=== PATIENT | female | born 1955 | race Caucasian/White ===

== ENCOUNTER 2020-01-26 07:52 | Outpatient (CLI) | payer OTHER, SELFPAY ==
--- NOTE | ~2020-01-26 | MM_ITS ---
EXAMINATION: MM screening carlos alberto BI w jeffrey HISTORY: Screening mammogram TECHNIQUE: Craniocaudal and mediolateral oblique 3-D tomosynthesis images were obtained and synthetic 2-D images were generated. CAD analysis was submitted and interpreted. COMPARISON: No prior mammogram is available for comparison at this institution. BREAST PARENCHYMAL COMPOSITION: There are scattered areas of fibroglandular density. FINDINGS: There is no evidence of suspicious mass, calcification, or architectural distortion to sugg est malignancy in either breast. IMPRESSION: 1. No mammographic evidence of malignancy. 2. Recommend routine screening mammography in one year. BI-RADS Category 1: Negative Reviewed, dictated and finalized at location A.
== END 2020-01-26 07:53 | disposition home or self-care (01) ==
LOC: ANHIMG 07:54
PROVIDERS: PCP Internal Medicine; Visit Provider Internal Medicine
DX: Z12.31 Encounter for screening mammogram for malignant neoplasm of breast (principal)
CPT/HCPCS: 77063; 77067

== ENCOUNTER 2021-04-25 08:51 | Outpatient (CLI) | payer OTHER, SELFPAY ==
--- NOTE | ~2021-04-25 | DEXA_ITS ---
Bone Density Report Name: Suyapa Barrios Age: 65 Sex: Female Ethnicity: White Date of : 1955 Indication: osteopenia; monitoring treatment; parental hip fracture; height loss; postmenopausal Referring Provider: CLIFFORD FAIR Study: Bone densitometry was performed. Exam Date: April 25, 2021 Accession number: [id number] Bone Density: Region BMD T-score Z-score Classification AP Spine (L1-L4) 0.819 -2.1 -0.4 Osteopenia Femoral Neck (Left) 0.565 -2.6 -1.1 Osteoporosis Total Hip (Left) 0.681 -2.1 -1.0 Osteopenia Total Hip Bilateral Avg 0.718 -1.8 -0.7 Osteopenia Femoral Neck (Right) 0.569 -2.5 -1.1 Osteoporosis Total Hip (Right) 0.755 -1.5 -0.4 Osteopenia World Health Organization criteria for BMD impression classify patients as: Normal (T-score at or above -1.0), Osteopenia (T-score between -1.0 and -2.5), or Osteoporosis (T-score at or below -2.5). 10-year Fracture Risk: FRAX not reported because: Some T-score for Spine Total or Hip Total or Femoral Neck at or below -2.5 Treated for osteoporosis Previous Exams: Region Exam Age BMD T-score BMD Change BMD Change Date g/cm2 vs Baseline vs Previous AP Spine(L1-L4) 04/25/2021 65 0.819 -2.1 0.024(3.0%)* 0.024(3.0%)* 12/28/2018 63 0.796 -2.3 Total Hip(Left) 04/25/2021 65 0.681 -2.1 0.010(1.4%) 0.010(1.4%) 12/28/2018 63 0.671 -2.2 Total Hip(Right) 04/25/2021 65 0.755 -1.5 0.075(11.0%)* 0.075(11.0%)* 12/28/2018 63 0.680 -2.1 *Denotes significance at 95% confidence level, LSC for AP Spine = 0.022 g/cm2, LSC for Total Hip = 0.027 g/cm2 Clinical Information Provided by Patient: Parent has had a hip fracture Is being treated for osteoporosis Has used the following medications: Evista (i.e. raloxifene), Vitamin D, Calcium Patient maximum height was 66 Menopause Age: 55 Drinks caffeinated beverages Onset of menses at age 15 Number of children 2 Impression: The patient has osteoporosis, based on the Left Femoral Neck T-score. The patient has risk factors, including: parental hip fracture. No significant bone loss was observed. Discussion: PATIENT UNDER TREATMENT WITH NO SIGNIFICANT BMD LOSS SINCE LAST EXAM. In an untreated patient, BMD typically declines with age. A lack of decline or gain is usually a sign that treatment is efficacious and fracture risk is reduced. It is important to ask patients whether they are taking their medications and to encourage continued and appropriate
== END 2021-04-25 08:52 | disposition home or self-care (01) ==
PROVIDERS: PCP Internal Medicine; Visit Provider Internal Medicine
DX: E55.9 Vitamin D deficiency, unspecified (principal); M85.88 Other specified disorders of bone density and structure, other site; M81.0 Age-related osteoporosis without current pathological fracture; M85.852 Other specified disorders of bone density and structure, left thigh; M85.851 Other specified disorders of bone density and structure, right thigh
CPT/HCPCS: 77080

== ENCOUNTER 2021-04-25 09:17 | Outpatient (CLI) | payer OTHER, SELFPAY ==
--- NOTE | 2021-04-25 09:36 | ECHO_ITS ---
Patient Info Name: Suyapa Barrios Age: 65 years : 1955 Gender: Female Ht: 65 in Wt: 122 lbs BSA: 1.59 m2 HR: 58 bpm BP: 136 / 79 mmHg Heart Rhythm: Sinus Rhythm Exam Date: 04/25/2021 10:07 AM Exam Location: [facility] Pulmonary Patient Status: Outpatient Admit Date: 04/25/2021 Staff Ordering Physician: Cristóbal Causey MD Paper Control Clerk: Lindsey Garcia RDCS Attending Provider: Cristóbal Causey MD Exam Type: CA echo doppler color flow Study Info Indications R94.31 - Abnormal electrocardiogram ECG EKG Complete two-dimensional, color flow and Doppler transthoracic echocardiogram is performed. Summary 1. Complete two-dimensional, color flow and Doppler transthoracic echocardiogram is performed. 2. Left ventricular chamber dimension is normal. 3. Left ventricular systolic function is normal, estimated at 60-65%. 4. The left ventricular diastolic function is abnormal. 5. E/e' 10 is mildly elevated. 6. There is mild to moderate aortic valve regurgitation. 7. No pulmonary hypertension, estimated pulmonary arterial systolic pressure is 20 mmHg. Left Ventricle E/e' 10 is mildly elevated. Left ventricular chamber dimension is normal. Left ventricular systolic function is normal, estimated at 60-65%. The left ventricular diastolic function is abnormal. Right Ventricle Right ventricular chamber dimension is normal. Right ventricular systolic function is normal. Left Atria Left atrial chamber dimension is normal. Right Atria Right atrial chamber dimension is normal. Aortic Valve The aortic valve is trileaflet. There is no aortic valve stenosis. There is mild to moderate aortic valve regurgitation. Pulmonic Valve There is no pulmonic regurgitation. Mitral Valve There is no mitral valve stenosis. There is no mitral valve regurgitation. Tricuspid Valve There is no tricuspid valve regurgitation. No pulmonary hypertension, estimated pulmonary arterial systolic pressure is 20 mmHg. Pericardium/Pleural There is no pericardial effusion. Inferior Vena Cava Normal inferior vena cava with >50% collapse upon inspiration consistent with normal right atrial pressure, 5 mmHg. Aorta The aortic root size at the sinus of Valsalva is normal. Left Ventricular Outflow Tract Name Value Normal LVOT 2D LVOT Diameter 2.0 cm LVOT Doppler LVOT Peak Gradient 4 mmHg LVOT Mean Gradient 2 mmHg LVOT VTI 27 cm LVOT VTI/AV VTI Ratio 0.9 LVOT Stroke Volume 84 ml LVOT CO 4.1 l/min LVOT CI 2.6 l/min/m2 Pulmonic Valve Name Value Normal RVOT Doppler RVOT Peak Gradient 2 mmHg PV Doppler
== END 2021-04-25 09:18 | disposition home or self-care (01) ==
PROVIDERS: PCP Internal Medicine; Visit Provider Internal Medicine
DX: R94.31 Abnormal electrocardiogram [ECG] [EKG] (principal)
CPT/HCPCS: 77080; 93306

== ENCOUNTER → 2021-05-26 12:33 | Outpatient (CLI) | payer OTHER, SELFPAY ==
--- NOTE | ~2021-05-26 | CT_ITS ---
EXAMINATION: CT abdomen pelvis w con DATE: 05/26/2021 13:02 INDICATION: Left upper quadrant abdominal pain TECHNIQUE: Computed tomography (CT) of the abdomen and pelvis was performed with 100 cc Omnipaque 350 intravenous contrast. Automated exposure control and iterative reconstruction technique were employe d. Exam dose: 263.98 mGy-cm total exam DLP. COMPARISON: None. FINDINGS: Normal heart size. No pericardial or pleural effusion. The liver, gallbladder, spleen, pancreas, and adrenal glands and kidneys appear normal. No bile duct or pancreatic duct dilatation. Normal caliber of the abdominal aorta. No intraperitoneal or retroperitoneal or pelvic mass lesion or adenopathy or ascites. There is prominent thickening of the wall of the mid sigmoid colon and suggestion of sigmoid divertic ulosis. Consider sigmoid diverticulitis versus sigmoid colon malignancy. No bowel obstruction is evident. There are nondilated fluid distended small bowel loops and occasiona l small bowel air-fluid levels. Fluid levels are noted in the right colon. No intraperitoneal free air is evident. Uterine calcifications, likely secondary to fibroids. Prominent bilateral adnexal enhancing veins. No suspicious osteolytic or osteoblastic lesions. IMPRESSION: Prominent thickening of the wall of the mid sigmoid colon and suggestion of diverticulos is. Differential diagnosis includes diverticulitis versus sigmoid colon carcinoma Reviewed, dictated and finalized at Location A. Reviewed, dictated and finalized at location B. IMPRESSION: Prominent thickening of the wall of the mid sigmoid colon and sugg estion of diverticulosis. Differential diagnosis includes diverticulitis versus sigmoid colon carcinoma
[2021-05-26 12:54] LABS: Estimated Glomerular Filt Rate > 60
== END ==
PROVIDERS: PCP Internal Medicine; Visit Provider Internal Medicine
DX: R10.32 Left lower quadrant pain (principal)
CPT/HCPCS: 74177; Q9967

== ENCOUNTER → 2021-06-11 08:23 | Outpatient (CLI) | payer OTHER, SELFPAY ==
--- NOTE | ~2021-06-11 | CT_ITS ---
EXAMINATION: CT abdomen pelvis w con INDICATION: Recent diverticulitis, nausea, abdominal pain TECHNIQUE: Computed tomographic images of the abdomen and pelvis were obtained after the administrati on of 100 cc of Omnipaque 350 intravenous contrast. The dose-length product (DLP) was 240.65 mGy-cm. Automated exposure control and iterative reconstruction technique were employed. COMPARISON: 05/26/2021 FINDINGS: Minimal dependent atelectasis is present in the lung bases. The heart size is normal. The l iver, spleen, pancreas, gallbladder, and adrenal glands are normal. The kidneys are unremarkable. No pathologically enlarged abdominal or pelvic lymph nodes are identified. There is no free intraperiton eal gas or evidence of bowel obstruction. There has been interval resolution in wall thickening and i nflammation in the sigmoid colon in the region of the previously described diverticulitis. No persist ent inflammatory change is seen. The appendix is normal. There is dilation of the parametrial veins i n the left pelvis which can be reflect pelvic venous congestion syndrome in the proper clinical setti ng. Lumbar levoscoliosis is noted. IMPRESSION: 1. Resolved sigmoid diverticulitis. Reviewed, dictated and finalized at location A.
[2021-06-11 09:01] LABS: Estimated Glomerular Filt Rate > 60
== END ==
PROVIDERS: Visit Provider Internal Medicine
DX: K57.92 Diverticulitis of intestine, part unspecified, without perforation or abscess without bleeding (principal)
CPT/HCPCS: 74177; Q9967

== ENCOUNTER → 2021-09-23 04:06 | Outpatient (CLI) | payer OTHER, SELFPAY ==
[2021-09-23 16:54] LABS: SARS-CoV-2 RNA PCR Negative
== END ==
PROVIDERS: PCP Internal Medicine; Visit Provider Internal Medicine
DX: R05.9 Cough, unspecified (principal); Z20.822 Contact with and (suspected) exposure to COVID-19
CPT/HCPCS: C9803; U0003; U0005

== ENCOUNTER → 2021-11-11 01:53 | Outpatient (CLI) | payer OTHER, SELFPAY ==
[2021-11-12 13:33] LABS: SARS-CoV-2 RNA PCR Negative
== END ==
PROVIDERS: PCP Internal Medicine; Visit Provider Internal Medicine
DX: R68.89 Other general symptoms and signs (principal); Z20.822 Contact with and (suspected) exposure to COVID-19
CPT/HCPCS: C9803; U0003; U0005

== ENCOUNTER 2021-12-25 00:33 | Day surgery (SDC) | payer OTHER, SELFPAY ==
[2021-12-11 15:06] VITALS: BMI 19.8
[2021-12-25 08:40] VITALS: BP 122/80; PULSE 86; RESP 16; TEMP 36.9; O2SAT 100; BMI 19.3
[2021-12-25] MEDS: LACTATED RINGERS 1,000 ML 150 ML IV CONT (09:03)
--- NOTE | 2021-12-25 09:20 | WPDGICN ---
Assessment and Plan Assessment and plan (1) Diverticulosis: Code(s): K57.90 - Diverticulosis of intestine, part unspecified, without perforation or abscess without bleeding Status: Acute Assessment and Plan: Patient with diverticular disease she is status post recent diverticulitis episode. Plan is for high-fiber diet. Colonoscopy will be performed today. (2) Colon cancer screening: Code(s): Z12.11 - Encounter for screening for malignant neoplasm of colon Status: Acute Assessment and Plan: Patient presents for screening exam is been 8-10 years since last exam. High-fiber diet is encouraged. Further recommendations will be given after endoscopy. GI Consult Note Consult date/time: 12/25/21 09:20 HPI: Suyapa Barrios is a 66 year old female Presents for screening colonoscopy. Patient has a history of diverticulitis within the last 6 months. She reports that she has recovered with no residual pain. Her bowel habits returned to normal. She denies any bleeding. Past history is significant for a colonoscopy 8 years ago that was unremarkable. Her family history is noncontributory. She presents today for colonoscopy having had diverticulitis. Also for screening purposes. Review of Systems Review of Systems: All systems reviewed & are unremarkable except as noted in HPI and below PMFSH Past Medical History Medical History (Updated 11/20/21 @ 08:40 by Jailene Landin CMA) Adult BMI 19-24 kg/sq m Atypical chest pain Atypical squamoproliferative skin lesion BMI 20.0-20.9, adult BMI 22.0-22.9, adult Chronic cough Colon cancer screening Cough Diverticulosis DJD (degenerative joint disease), multiple sites Elevated glucose Encounter for preventive health examination Encounter for routine adult health examination without abnormal findings Encounter for screening mammogram for malignant neoplasm of breast Exposure to COVID-19 virus Follow up Heart palpitations Hyperlipidemia LLQ abdominal pain On half-way drug therapy Osteopenia Osteoporosis Rash Seasonal allergies Stress incontinence of urine Vitamin D deficiency Family History Family History Father Family history of elevated blood lipids Family history of coronary artery disease, Onset Age: 84 Mother Cerebrovascular accident, Onset Age: 86 Social History Social History Smoking status: Never smoker Alcohol intake: current Drinks per week: 3 Substance use: never Substance use type: does not use Living arrangements: with family Spiritual care concerns: No Meds Home Medications and Allergies Home Medications Medication Instructions Recorded Confirmed Type antiarthritic combination no.2 900 900 mg PO DAILY 12/20/19 12/11/21 History mg tablet calcium carbonate 500 mg calcium 500 mg PO DAILY 12/20/19 12/11/21 History (1,250 mg) tablet cholecalciferol (vitamin D3) 125 125 mcg PO DAILY 12/20/19 12/11/21 History mcg (5,000 unit) tablet raloxifene 60 mg tablet See Rx Instructions .ROUTE 05/23/21 12/11/21 Rx .COMPLEX #90 tablet acetazolamide 250 mg tablet 250 mg PO DAILY #5 tablet 11/20/21 12/11/21 Rx Allergies Allergy/AdvReac Type Severity Reaction Status Date / Time No Known Allergies Allergy Verified 12/25/21 08:50 Vital Signs Vital Signs - 24 hr 12/25/21 08:40 Temperature 98.5 F Pulse Rate 86 Respiratory Rate 16 Blood Pressure 122/80 Pulse Oximetry 100 Exam Narrative: Physical exam reveals patient to be alert. Vital signs stable. HEENT exam is unremarkable. Patient is anicteric. Lungs are clear to auscultation and percussion. Heart is without murmur or extra sounds. Abdominal exam bowel sounds present soft nontender with no organomegaly. Digital external rectal exam is normal.
--- NOTE | 2021-12-25 09:34 | WPDANESEPPF ---
Anes - Initial Pre Proc Eval Procedure: Operation Date: 12/25/21 09:45 Proposed Procedures p Colonoscopy - Williams Clemente MD Date/Time: 12/25/21 09:34 Surgeon: Williams Clemente MD Pre Op Diagnosis: diverticulitis Patient Data Age: 66 Gender: F Height: 1.65 m Weight: 52.6 kg Last Vital Signs Temp 98.5 F 12/25/21 08:40 Pulse 86 12/25/21 08:40 Resp 16 12/25/21 08:40 BP 122/80 12/25/21 08:40 Pulse Ox 100 12/25/21 08:40 Allergies Allergy/AdvReac Type Severity Reaction Status Date / Time No Known Allergies Allergy Verified 12/25/21 08:50 Home Medications Medication Instructions Recorded Confirmed Type antiarthritic combination no.2 900 900 mg PO DAILY 12/20/19 12/11/21 History mg tablet calcium carbonate 500 mg calcium 500 mg PO DAILY 12/20/19 12/11/21 History (1,250 mg) tablet cholecalciferol (vitamin D3) 125 125 mcg PO DAILY 12/20/19 12/11/21 History mcg (5,000 unit) tablet raloxifene 60 mg tablet See Rx Instructions .ROUTE 05/23/21 12/11/21 Rx .COMPLEX #90 tablet acetazolamide 250 mg tablet 250 mg PO DAILY #5 tablet 11/20/21 12/11/21 Rx Patient hx anesthesia problems: none Family hx anesthesia problems: none Results Review: All pre-operative results and documents have been reviewed as part of the pre-operative evaluation. [facility] Past Medical History Medical History (Updated 11/20/21 @ 08:40 by Jailene Landin, [facility]) Adult BMI 19-24 kg/sq m Atypical chest pain Atypical squamoproliferative skin lesion BMI 20.0-20.9, adult BMI 22.0-22.9, adult Chronic cough Colon cancer screening Cough Diverticulosis DJD (degenerative joint disease), multiple sites Elevated glucose Encounter for preventive health examination Encounter for routine adult health examination without abnormal findings Encounter for screening mammogram for malignant neoplasm of breast Exposure to COVID-19 virus Follow up Heart palpitations Hyperlipidemia LLQ abdominal pain On prison drug therapy Osteopenia Osteoporosis Rash Seasonal allergies Stress incontinence of urine Vitamin D deficiency Family History Family History Father Family history of elevated blood lipids Family history of coronary artery disease, Onset Age: 84 Mother Cerebrovascular accident, Onset Age: 86 Social History Social History Smoking status: Never smoker Alcohol intake: current Drinks per week: 3 Substance use: never Substance use type: does not use Living arrangements: with family Spiritual care concerns: No Anes - Eval Final PreProcedure Day of Procedure 12/25/21 09:34 Patient weight: normal Heart: regular rate and rhythm Lungs: clear to auscultation Airway: Mallampati scale class II Neurological: alert and oriented Last oral intake: >/= 8 hours ASA classification: II Emergent: no Anesthetic plan: proceed Anesthesia type and monitoring: general GIVS and standard monitoring Results Review: All pre-operative results and documents have been reviewed as part of the pre-operative evaluation. Informed Consent: The patient's anesthetic plan and its attendant risks and benefits were discussed with the patient/family/POA. Questions were solicited and answers provided to the satisfaction of the patient/family/POA.
[2021-12-25 09:40] VITALS: BP 75/45; PULSE 78; RESP 16; O2SAT 99
[2021-12-25 09:50] VITALS: BP 107/70; PULSE 61; RESP 16; O2SAT 99
[2021-12-25 10:00] VITALS: BP 110/70; PULSE 59; RESP 16; O2SAT 99
== END 2021-12-25 10:15 | disposition home or self-care (01) ==
PROVIDERS: PCP Internal Medicine; Visit Provider Internal Medicine Gastroenterology
PROC: 0DJD8ZZ Inspection of Lower Intestinal Tract, Via Natural or Artificial Opening Endoscopic (ICD-10-PCS; CPT 45378; principal; 2021-12-25 09:45)
DX: Z12.11 Encounter for screening for malignant neoplasm of colon (principal); K64.8 Other hemorrhoids; K57.30 Diverticulosis of large intestine without perforation or abscess without bleeding; Z87.19 Personal history of other diseases of the digestive system; E78.5 Hyperlipidemia, unspecified; M81.0 Age-related osteoporosis without current pathological fracture; E55.9 Vitamin D deficiency, unspecified; N39.3 Stress incontinence (female) (male)
CPT/HCPCS: 45378; J2704; J7120

== ENCOUNTER → 2022-10-05 09:50 | Outpatient (CLI) | payer MEDICARE, OTHER, SELFPAY ==
--- NOTE | ~2022-10-05 | US_ITS ---
EXAMINATION: US pelvic complete DATE: 10/05/2022 11:09 INDICATION: Right lower quadrant pain Comparison:No prior studies for comparison. TECHNIQUE: Multiple transabdominal sonographic images of the pelvis performed. FINDINGS: The uterus measures 5.2 x 3.2 x 3.8 cm. There is a partially calcified uterine fibroid rabia uring 1.3 cm. The endometrial complex measures 2 mm. The right ovary measures 2.3 x 1.8 x 2.1 cm and the left ovary measures 2.5 x 1.4 x 1.9 cm. There ar e small follicles in each ovary. Normal doppler signal in both ovaries. There is no free fluid in the pelvis. There are no abnormal masses seen on either side. No abnormali ty of the right lower quadrant identified. Peristalsing bowel noted. IMPRESSION: 1. Uterine fibroid measuring 1.3 cm. Reviewed, dictated and finalized at location B. LE PROCESSOR
== END ==
PROVIDERS: PCP Internal Medicine; Visit Provider Internal Medicine
DX: R10.30 Lower abdominal pain, unspecified (principal); D25.9 Leiomyoma of uterus, unspecified
CPT/HCPCS: 76856

== ENCOUNTER → 2022-10-12 11:23 | Outpatient (CLI) | payer MEDICARE, OTHER, SELFPAY ==
--- NOTE | ~2022-10-12 | XR_ITS ---
XR hip LT min 2V DATE: 10/12/2022 11:46 INDICATION: Left hip popped while golfing 4 days ago TECHNIQUE: AP, lateral, crosstable lateral views of left hip COMPARISON: None FINDINGS: No fracture or dislocation, avascular necrosis or bone destruction of the left hip. Left hi p joint space appears relatively preserved. The pubic symphysis and sacral iliac joints appear intact. Mild rotatory levoscoliosis of the lumbar spine. IMPRESSION: No significant abnormality of left hip Reviewed, dictated and finalized at location B. 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
== END ==
PROVIDERS: PCP Internal Medicine; Visit Provider Internal Medicine
DX: S79.912A Unspecified injury of left hip, initial encounter (principal); T14.90XA Injury, unspecified, initial encounter
CPT/HCPCS: 73502

== ENCOUNTER 2023-07-07 22:42 | Emergency (ER) | payer MEDICARE, OTHER, SELFPAY ==
--- NOTE | ~2023-07-07 | XR_ITS ---
EXAMINATION: XR chest 2V DATE: 07/07/2023 23:10 INDICATION: Left chest pain. TECHNIQUE: Frontal and lateral views of the chest were obtained. COMPARISON: Chest 2 views 06/25/2018 FINDINGS: There is mild scarring at the lung apices. No pleural effusion or pneumothorax. The heart s ize is normal. IMPRESSION: 1. Stable mild scarring at the lung apices. Reviewed, dictated and finalized at location A.
--- NOTE | 2023-07-07 22:43 | ECG_ITS ---
Measurements Intervals [place] Rate: 60 P: 10 KS: 143 QRS: 15 QRSD: 82 T: 54 QT: 401 QTc: 402 Interpretive Statements SINUS RHYTHM POSSIBLE LEFT ATRIAL ENLARGEMENT [-0.1mV P WAVE IN V1/V2] ST DEVIATION AND MODERATE T-WAVE ABNORMALITY, CONSIDER ANTERIOR ISCHEMIA [-0.1+ mV T WAVE IN V3/V4] NO PREVIOUS ECG AVAILABLE FOR COMPARISON Electronically Signed On 07-08-2023 11:00:04 CDT by Romi Khan M.D.
[2023-07-07 22:46] VITALS: BP 179/86; PULSE 66; RESP 16; TEMP 36.6; O2SAT 98
[2023-07-07 22:52] VITALS: O2SAT 98
[2023-07-07 23:03] LABS: Basophils Absolute Auto 0.1 K/mm3 (0.0-0.1); Basophils Percent Auto 1.1 % (0.2-1.2); Eosinophils Absolute Auto 0.2 K/mm3 (0-0.3); Eosinophils Percent Auto 3.1 % (0-4.4); Hematocrit 41.8 % (37.0-47.0); Hemoglobin 14.2 g/dL (12.0-15.0); Immature Granulocyte Absolute 0.01 K/mm3 (0.00-0.031); Immature Granulocyte Percent A 0.1 % (0-0.5); Lymphocytes Absolute Auto 3.12 K/mm3 (0.9-3.2); Lymphocytes Percent Auto 42.4 % (18.3-44.2); Mean Corpuscular Hemoglobin 31.1 pg (26-34); Mean Corpuscular Volume 91.7 fl (80-100); Mean Platelet Volume 9.7 fl (7.4-10.4); Monocytes Absolute Auto 0.6 K/mm3 (0.1-0.6); Monocytes Percent Auto 8.2 % (2.6-8.5); Neutrophils Absolute Auto 3.3 K/mm3 (1.3-6.7); Neutrophils Percent Auto 45.1 % (45.5-73.1); Platelet Count Result 286 k/mm3 (150-375); Red Blood Count 4.56 M/mm3 (4.2-5.4); Red Cell Distribution Width 11.9 % (11.5-14.5); White Blood Count 7.4 K/mm3 (4.5-10.0)
[2023-07-07 23:13] LABS: INR 0.9; Partial Thromboplastin Time 26.3 SECONDS (22.3-36.8); Prothrombin Time 12.8 Seconds (11.1-14.7)
[2023-07-07 23:16] LABS: Alanine Aminotransferase 27 U/L (6-35); Albumin Level 4.6 g/dL (3.5-5.1); Alkaline Phosphatase 52 U/L (38-126); Anion Gap 6 mmol/L (8-16); Aspartate Amino Transferase 30 U/L (14-36); Bilirubin,Total 0.5 mg/dL (0.2-1.3); Blood Urea Nitrogen 15 mg/dL (7-17); Calcium 9.9 mg/dL (8.4-10.2); Carbon Dioxide 30 mmol/L (22-30); Chloride 95 mmol/L (98-107); Estimated CRCL calculation 53 ml/min; Estimated Glomerular Filt Rate > 60; Glucose 100 mg/dL (65-110); Lipase 168 U/L (23-300); Potassium 3.9 mmol/L (3.4-5.0); Sodium 131 mmol/L (137-145)
[2023-07-07] MEDS: ASPIRIN 81 MG CHEWABLE TABLET 324 MG PO (23:22)
[2023-07-07 23:27] LABS: Troponin I < 0.012 ng/mL (0.000-0.034)
[2023-07-07 23:28] VITALS: PULSE 61; RESP 16; O2SAT 100
[2023-07-07 23:43] VITALS: PULSE 54; RESP 16; O2SAT 100
[2023-07-07 23:45] VITALS: PULSE 59; RESP 17
[2023-07-07] MEDS: IBUPROFEN 400 MG TABLET 800 MG PO (23:45)
[2023-07-07 23:46] VITALS: BP 152/95; PULSE 58; RESP 13; O2SAT 100
--- NOTE | 2023-07-07 23:55 | ED.CHESTPAIN ---
HPI - Chest Pain General Chief Complaint: Chest Pain Stated Complaint: cp Time Seen by Provider: 07/07/23 23:11 History of Present Illness HPI narrative: This is a 68-year-old female, with no significant past medical history, who presents to the emergency department complaining of left-sided chest pain for the past 2 days. She describes the pain as a constant, throbbing sensation, located in the left chest without radiation. It is rated 2-4/10. Pain seems to worsen with lying flat. She denies other aggravating factors. She states she took 2 Excedrin yesterday with improvement. She took 1 Excedrin today with out improvement. She denies nausea, vomiting, shortness of breath lightheadedness, weakness or numbness. She states she has experienced pain like this once in the past, though not for this long. Related Data Home Medications Medication Instructions Recorded Confirmed antiarthritic combination no.2 900 900 mg PO DAILY 12/20/19 10/01/22 mg tablet (glucosamine-chondroitin) calcium carbonate 500 mg calcium 500 mg PO DAILY 12/20/19 10/01/22 (1,250 mg) tablet (Calcium 500) cholecalciferol (vitamin D3) 125 125 mcg PO DAILY 12/20/19 10/01/22 mcg (5,000 unit) tablet (Vitamin D3) Allergies Allergy/AdvReac Type Severity Reaction Status Date / Time No Known Allergies Allergy Verified 12/25/21 08:50 Review of Systems Review of Systems: CONSTITUTIONAL: Denies fever, chills, or sweats. CARDIOVASCULAR: Chest pain denies palpitations, or edema. RESPIRATORY: Denies cough or dyspnea. GASTROINTESTINAL: Denies abdominal pain, nausea, vomiting, or diarrhea. GENITOURINARY: Denies dysuria or hematuria. SKIN: Denies rash or itching. MUSCULOSKELETAL: Denies back pain, joint pain, or myalgia. NEUROLOGIC: Denies headache, numbness, dizziness, or weakness. PSYCHIATRIC: Denies anxiety or depression. [facility] Past Medical History Medical History Adult BMI 19-24 kg/sq m Atypical chest pain Atypical squamoproliferative skin lesion BMI 20.0-20.9, adult BMI 22.0-22.9, adult Chronic cough Colon cancer screening Cough Diverticulosis DJD (degenerative joint disease), multiple sites Elevated glucose Encounter for preventive health examination Encounter for routine adult health examination without abnormal findings Encounter for screening mammogram for malignant neoplasm of breast Exposure to COVID-19 virus Follow up Heart palpitations Hyperlipidemia LLQ abdominal pain Lower abdominal pain On alf drug therapy Osteopenia Osteoporosis Pelvic pain Rash Seasonal allergies Stress incontinence of urine Vitamin D deficiency Family History Family History Father Family history of elevated blood lipids Family history of coronary artery disease, Onset Age: 84 Mother Cerebrovascular accident, Onset Age: 86 Social History Social History Smoking status: Never smoker Second hand tobacco smoke exposure: No Alcohol intake: current Drinks per week: 3 Substance use: never Substance use type: does not use Lack of Transportation: No Lack of Food: Never True Current Housing: I Have Housing Concerned About Future Housing: No Difficulty Paying Gas/Electric Bills: No Difficulty Paying for Meds: No Currently Unemployed: No Education: Bachelor's Degree Difficulty w/ Childcare or Family Care: No Living arrangements: with family Gender identity (if verbalized by the patient): Female Spiritual care concerns: No Exam Narrative: GENERAL: Well-developed, well-nourished, and in no acute distress. HEAD: Normocephalic, atraumatic. EYES: PERRLA and EOMI. CHEST: Clear to auscultation. No respiratory distress. No wheezes rales or rhonchi HEART: Regular rate and rhythm. No murmur heard. Normal peripheral pulses. ABDOMEN: Soft, no
[2023-07-08 00:51] VITALS: BP 144/81; PULSE 67; RESP 14; O2SAT 100
== END 2023-07-08 00:53 | disposition home or self-care (01) ==
PROVIDERS: Emergency Provider Preventive Medicine Aerospace Medicine; PCP Internal Medicine
DX: R09.1 Pleurisy (principal); R07.89 Other chest pain; E78.5 Hyperlipidemia, unspecified; E55.9 Vitamin D deficiency, unspecified; M85.80 Other specified disorders of bone density and structure, unspecified site; M81.0 Age-related osteoporosis without current pathological fracture; N39.3 Stress incontinence (female) (male); R94.31 Abnormal electrocardiogram [ECG] [EKG]
CPT/HCPCS: 36415; 71046; 71275; 80053; 83690; 84484; 85025; 85380; 85610; 85730; 93005; 99284; A9270; Q9967

== ENCOUNTER 2023-07-08 11:22 | Outpatient (CLI) | payer MEDICARE, OTHER, SELFPAY ==
--- NOTE | ~2023-07-08 | CT_ITS ---
EXAMINATION: CTA chest PE protocol DATE: 07/08/2023 12:36 INDICATION: Chest pain, unspecified. TECHNIQUE: Computed tomography angiography (CTA) of the chest was performed with 100 mL Omnipaque-350 intravenous contrast timed to evaluate the pulmonary arteries. Coronal maximum intensity projection 3D-reconstructions were created by the technologist. Automated exposure control and iterative reconst ruction technique were employed. The dose-length product was 176.26 mGy-cm. COMPARISON: CT abdomen and pelvis 06/11/2021 FINDINGS: There is mild scarring at the lung apices. There is minimal atelectasis in the lungs. No pl eural effusion. The heart size is normal. No pericardial effusion. There is mild aortic atheroscleros is. There is no pulmonary embolus. Thoracic dextroscoliosis and thoracolumbar levoscoliosis noted. IMPRESSION: 1. No pulmonary embolus. Reviewed, dictated and finalized at location A. IMPRESSION: 1. No pulmonary embolus.
[2023-07-08 13:06] LABS: D Dimer 0.34 ug/mL (<0.48)
== END 2023-07-08 11:23 | disposition home or self-care (01) ==
LOC: ANHIMG 11:23
PROVIDERS: PCP Internal Medicine; Visit Provider Internal Medicine
DX: R06.09 Other forms of dyspnea (principal); R07.9 Chest pain, unspecified
CPT/HCPCS: 36415; 71275; 85380; Q9967

== ENCOUNTER 2023-07-28 10:05 | Outpatient (CLI) | payer MEDICARE, OTHER, SELFPAY ==
--- NOTE | 2023-07-28 15:05 | WPDPFTINT ---
PFT Procedure Performed PFT Procedure Performed Spirometry with Pre/Post Bronchodilator Plethysmography (Lung Vol) Diffusing Cap (DLCO) Flow Vol Loop PFT Interpretation Lung volumes were measured with the body plethysmography method. Lung volumes are unremarkable. Spirometry showed normal expiratory flow rates and a normal FEV1 to FVC ratio 72%. Following administration of a bronchodilator there was no significant increase in the expiratory flow rates. Lung diffusion capacity is normal at 74% predicted. The flow-volume loop is unremarkable. Impression: Spirometry, lung volumes, and lung diffusion capacity all within the normal range.
== END 2023-07-28 10:06 | disposition home or self-care (01) ==
LOC: ANHPFT 10:05
PROVIDERS: PCP Internal Medicine; Visit Provider Internal Medicine
DX: R05.9 Cough, unspecified (principal)
CPT/HCPCS: 94060; 94726; 94729

== ENCOUNTER 2024-03-21 10:33 | Outpatient (CLI) | payer MEDICARE, OTHER, SELFPAY ==
--- NOTE | ~2024-03-21 | CT_ITS ---
EXAMINATION: CT abdomen pelvis w con DATE: 03/21/2024 11:14 INDICATION: Abdominal pain TECHNIQUE: Computed tomography (CT) of the abdomen and pelvis was performed with 100 mL Omnipaque-350 intravenous contrast. Automated exposure control and iterative reconstruction technique were employe d. The dose-length product was 229.36 mGy-cm. COMPARISON: 06/11/2021 FINDINGS: Lung bases are clear. Heart size is normal. No pericardial or pleural effusion. Liver, gallbladder, s pleen, pancreas, bilateral adrenal glands and kidneys are normal. Bowels including the appendix are n ormal. Unchanged prominent left gonadal vein and left parametrial vessels which can be seen with pulm onary vascular congestion syndrome. Uterus and bilateral adnexa are otherwise unremarkable. Bladder i s normal. No free intraperitoneal gas or fluid. No pathologically enlarged abdominal or pelvic lympha denopathy. 25 degrees thoracolumbar levoscoliosis with moderate spondylosis. IMPRESSION: 1. Unchanged prominent left gonadal vein and parametrial vessels which can be seen with pelvic vascul ature congestion syndrome. No acute intra-abdominal/pelvic process. Reviewed, dictated and finalized at location A. IMPRESSION: 1. Unchanged prominent left gonadal vein and parametrial vessels which can be s een with pelvic vasculature congestion syndrome. No acute intra-abdominal/pelvi c process.
[2024-03-21 11:07] LABS: Estimated Glomerular Filt Rate > 60
[2024-03-21 11:33] LABS: Basophils Absolute Auto 0.1 K/mm3 (0.0-0.1); Basophils Percent Auto 1.3 % (0.2-1.2); Eosinophils Absolute Auto 0.1 K/mm3 (0-0.3); Hematocrit 40.8 % (37.0-47.0); Hemoglobin 13.5 g/dL (12.0-15.0); Immature Granulocyte Absolute 0.02 K/mm3 (0.00-0.031); Immature Granulocyte Percent A 0.4 % (0-0.5); Lymphocytes Absolute Auto 1.57 K/mm3 (0.9-3.2); Lymphocytes Percent Auto 28.9 % (18.3-44.2); Mean Corpuscular HGB Conc 33.1 g/dl (32-36); Mean Corpuscular Hemoglobin 30.7 pg (26-34); Mean Corpuscular Volume 92.7 fl (80-100); Mean Platelet Volume 9.7 fl (7.4-10.4); Monocytes Absolute Auto 0.4 K/mm3 (0.1-0.6); Monocytes Percent Auto 7.9 % (2.6-8.5); Neutrophils Absolute Auto 3.2 K/mm3 (1.3-6.7); Neutrophils Percent Auto 59.5 % (45.5-73.1); Platelet Count Result 269 k/mm3 (150-375); Red Cell Distribution Width 12.6 % (11.5-14.5); White Blood Count 5.4 K/mm3 (4.5-10.0)
== END 2024-03-21 10:34 | disposition home or self-care (01) ==
PROVIDERS: PCP Internal Medicine; Visit Provider Internal Medicine
DX: K57.92 Diverticulitis of intestine, part unspecified, without perforation or abscess without bleeding (principal)
CPT/HCPCS: 36415; 74177; 85025; Q9967

== ENCOUNTER 2024-08-14 13:29 | Outpatient (CLI) | payer MEDICARE, OTHER, SELFPAY ==
--- NOTE | ~2024-08-14 | XR_ITS ---
[id number] Ordering provider: Cristóbal Causey MD History: . No injury pain for 3 months in plantar side of foot . Comparison: None. FINDINGS: BONES: No acute fracture or dislocation. JOINT SPACES: Narrowing of the proximal interphalangeal joints.. No tarsal coalition. SOFT TISSUES: Normal. IMPRESSION: No acute osseous abnormality left foot. Reviewed, dictated and finalized at location A.
--- NOTE | ~2024-08-14 | XR_ITS ---
Cervical Spine: AP, lateral, open-mouth views Clinical History: Pain Findings: There is reversal of the normal cervical lordosis. There is 4 mm anterolisthesis of C3 over C4. There is severe degenerative disc change at C4-C5, C5-C6, and C6-C7. There is moderate to advanc ed facet arthropathy throughout cervical spine. No prevertebral soft tissues along. Impression: Moderate to advanced degenerative spondylosis, as detailed above, with reversal of the normal cervica l lordosis, and 4 mm anterolisthesis of C3 over C4. Reviewed, dictated and finalized at location . Impression: Moderate to advanced degenerative spondylosis, as detailed above, with reversal of the normal cervical lordosis, and 4 mm anterolisthesis of C3 over C4.
== END 2024-08-14 13:30 | disposition home or self-care (01) ==
LOC: GOSHIMG 13:30
PROVIDERS: PCP Internal Medicine; Visit Provider Internal Medicine
DX: M79.672 Pain in left foot (principal); M47.812 Spondylosis without myelopathy or radiculopathy, cervical region; M50.820 Other cervical disc disorders, mid-cervical region, unspecified level
CPT/HCPCS: 72050; 73630

== ENCOUNTER 2024-11-09 14:10 | Emergency (ER) | payer MEDICARE, OTHER, SELFPAY ==
--- NOTE | ~2024-11-09 | US_ITS ---
EXAMINATION: US venous doppler [facility] DATE: 11/09/2024 16:09 INDICATION: Left lower limb pain TECHNIQUE: Grayscale ultrasound images without and with compression and Doppler ultrasound images of the left lower extremity veins were obtained. COMPARISON: None. FINDINGS: The visualized portions of left common femoral vein, profunda (deep) femoral vein, femoral vein, popl iteal vein, peroneal veins, posterior tibial veins, gastrocnemius vein and greater saphenous vein out flow are patent. IMPRESSION: 1. No deep venous thrombosis in the left lower limb. Reviewed, dictated and finalized at location B. CHER
--- NOTE | ~2024-11-09 | XR_ITS ---
EXAM: XR knee LT min 4V DATE: 11/09/2024 15:43 HISTORY: left knee pain . COMPARISON: None. FINDINGS: Osteopenia. No acute fracture or dislocation. No lytic or blastic lesion. Mild tricompartm ental osteoarthritis. No erosion or periosteal change. Soft tissues within normal limits. IMPRESSION: No acute osseous finding in the left knee. Reviewed, dictated and finalized at location K. ABSTRACTOR
[2024-11-09 14:11] VITALS: BP 138/76; PULSE 95; RESP 18; TEMP 36.6; O2SAT 100
--- NOTE | 2024-11-09 14:57 | ED_ITS ---
HPI - Extremity Injury (Lower) General Chief Complaint: Extremity Injury, Lower Stated Complaint: left knee pain Time Seen by Provider: 11/09/24 14:57 Focused HPI: This is a 69 year old female that presents to the ER for left posterior knee pain. Reports it has been ongoing since this weekend and now is swollen. No recent injuries. Denies fever or redness. GENERAL: Well-appearing, well-nourished, and in no acute distress. HEAD: Normocephalic, atraumatic. CHEST: Clear to auscultation. ?No respiratory distress. HEART: Regular rate and rhythm.? NEURO: ?Alert and oriented x3. Patient screened in triage and initial orders placed.? ?Additional care and disposition to be based upon?diagnostic testing and treatment. Related Data Home Medications ?Medication ?Instructions ?Recorded ?Confirmed ?Last Taken ?Type antiarthritic combination no.2 900 900 mg PO DAILY 12/20/19 11/02/24 12/24/21 History mg tablet (glucosamine-chondroitin) calcium carbonate (Calcium 500) 500 mg PO DAILY 12/20/19 11/02/24 12/24/21 History Allergies Allergy/AdvReac Type Severity Reaction Status Date / Time No Known Allergies Allergy Verified 11/02/24 10:42 Review of Systems Review of Systems: CONSTITUTIONAL: Denies fever SKIN: Denies rash MUSCULOSKELETAL: Reports joint pain, and myalgia. NEUROLOGIC: Denies numbness All systems reviewed & are unremarkable except as noted in HPI and below PMFSH Past Medical History Medical History (Updated 11/09/24 @ 18:20 by Maria Isabel Mckinley PA-C) Hearing loss Cervicalgia Encounter for routine adult health examination with abnormal findings Left foot pain Encounter for Medicare annual wellness exam Diastolic dysfunction Left-sided chest pain Left hip pain Pelvic pain Lower abdominal pain Encounter for routine adult health examination without abnormal findings Exposure to COVID-19 virus Cough Rash Diverticulosis Follow up Diverticulitis LLQ abdominal pain Adult BMI 19-24 kg/sq m Seasonal allergies BMI 20.0-20.9, adult Chronic cough Hyperlipidemia BMI 22.0-22.9, adult Encounter for screening mammogram for malignant neoplasm of breast Colon cancer screening Encounter for preventive health examination 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 terminal 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 controller drug therapy Osteoporosis Vitamin D deficiency Stress incontinence of urine Osteopenia DJD (degenerative joint disease), multiple sites Heart palpitations Elevated glucose Atypical squamoproliferative skin lesion Atypical chest pain Family History Family History Father Family history of elevated blood lipids Family history of coronary artery disease, Onset Age: 84 Mother Cerebrovascular accident, Onset Age: 86 Social History Social History Smoking status: Never smoker Second hand tobacco smoke exposure: No Alcohol intake: current Drinks per week: 3 Substance use: never Substance use type: does not use Lack of Transportation: No Lack of Food: Never True Current Housing: I Have Housing Concerned About Future Housing: No Difficulty Paying Gas/Electric Bills: No Difficulty Paying for Meds: No Currently Unemployed: No Education: Bachelor's Degree Difficulty w/ Childcare or Family Care: No Living arrangements: with family Gender identity (if verbalized by the patient): Female Spiritual care concerns: No Exam Narrative: GENERAL: Well-appearing, well-nourished, and in no acute distress. HEAD: Normocephalic, atraumatic. EYES: EOMI. EXTREMITIES: Normal range of motion. No edema or erythema. SKIN: Warm, dry, no rash. NEURO: No focal deficits. Alert and oriented x3. Normal gait PSYCH: Normal mood and affect Course Course Emergency Course: patient updated on her workup and agrees with plan of care Vital Signs Vital signs: Vital Signs Temperature 97.8 F 11/09/24 14:11 Pulse Rate 95 11/09/24 14:11 Respiratory Rate 18 11/09/24 14:11 Blood Pressure 138/76 11/09/24 14:11 Pulse Oximetry 100 11/09/24 14:11 Oxygen Delivery Room Air 11/09/24 14:11 Temperature 97.8 F 11/09/24 14:11 Pulse Rate 95 11/09/24 14:11 Respiratory Rate 18 11/09/24 14:11 Blood Pressure 138/76 11/09/24 14:11 Pulse Oximetry 100 11/09/24 14:11 Oxygen Delivery Room Air 11/09/24 14:11 MDM - Extremity Injury (Lower) MDM Narrative Medical decision making narrative: patient presents the emergency department for left lower leg pain behind the knee. She is afebrile and nontoxic appearing. Neurovascularly intact. Left knee x-ray without acute osseous abnormalities. Left lower extremity venous Doppler without evidence of DVT. Patient updated on workup and agrees with plan of care. Instructed further follow-up with primary provider. She was given warnings to return the ER Differential Diagnosis Differential diagnosis: Likely other ( osteoarthritis, DVT, Chairez's cyst) Imaging Data Radiologist's impression: ITS Impressions Knee X-Ray 11/09/24 15:44 IMPRESSION: No acute osseous finding in the left knee. Venous Doppler Study 11/09/24 16:12 IMPRESSION: 1. No deep venous thrombosis in the left lower limb. Critical Care Time Critical Care Time Critical Care Time: No Discharge Plan Discharge Clinical Impression: Lower extremity pain, left Patient Disposition: Home, Self-Care Condition: Stable Instructions: Leg Pain (ED) Additional Instructions: Return to the ER if you experience fever, redness and swelling of your extremity, numbness or any other symptoms that are concerning to you Ice and elevate extremity. Tylenol or Ibuprofen as needed for pain Follow up with your doctor for further care. Patient Language: Salvadorean Prescriptions: No Action glucosamine-chondroitin 900 mg tablet 900 mg PO DAILY calcium carbonate [Calcium 500] 500 mg calcium (1,250 mg) tablet 500 mg PO DAILY raloxifene 60 mg tablet See Rx Instructions .ROUTE .COMPLEX Qty: 90 0RF Dose Instruction: TAKE 1 TABLET BY MOUTH DAILY Rx Instructions: TAKE 1 TABLET BY MOUTH DAILY Follow-up/Referrals: Cristóbal Causey MD [Primary Care Provider] -
== END 2024-11-10 08:09 | disposition home or self-care (01) ==
PROVIDERS: Emergency Provider Physician Assistant; PCP Internal Medicine
DX: M79.605 Pain in left leg (principal); M15.9 Polyosteoarthritis, unspecified; M85.80 Other specified disorders of bone density and structure, unspecified site; E78.5 Hyperlipidemia, unspecified
CPT/HCPCS: 73564; 93971; 99284

== ENCOUNTER 2025-06-28 12:04 | Outpatient (CLI) | payer MEDICARE, OTHER, SELFPAY ==
--- NOTE | ~2025-06-28 | DEXA_ITS ---
Bone Density Report Name: DILSHAD LUU Age: 70 Sex: Female Ethnicity: White Date of : 1955 Indication: postmenopausal; screening for osteoporosis; height loss; inflammatory bowel disease; asthma or emphysema; Referring Provider: CLIFFORD FAIR Study: Bone densitometry was performed. Exam Date: June 28, 2025 Accession number: [id number] Bone Density: Region BMD T-score Z-score Classification AP Spine(L1-L4) 0.799 -2.3 -0.3 Osteopenia Femoral Neck (Left) 0.559 -2.6 -0.9 Osteoporosis Total Hip (Left) 0.746 -1.6 -0.2 Osteopenia Femoral Neck (Right) 0.548 -2.7 -1.0 Osteoporosis Total Hip (Right) 0.761 -1.5 -0.1 Osteopenia Femoral Neck Mean 0.553 -2.7 -1.0 Osteoporosis Total Hip Mean 0.753 -1.5 -0.2 Osteopenia World Health Organization criteria for BMD impression classify patients as: Normal (T-score at or above -1.0), Osteopenia (T-score between -1.0 and -2.5), or Osteoporosis (T-score at or below -2.5). 10-year Fracture Risk: FRAX not reported because: Some T-score for Spine Total or Hip Total or Femoral Neck at or below -2.5 Clinical Information Provided by Patient: Has used the following medications: Evista (i.e. raloxifene), Vitamin D, Calcium Has the following medical conditions: Asthma or Emphysema, Inflammatory bowel diseases Patient maximum height was 66. Menopause Age: 55 Does not regularly consume dairy products Drinks caffeinated beverages Onset of menses at age 15 Number of children 2 Impression: The patient has osteoporosis, based on the Right Femoral Neck T-score. Discussion: INCREASED RISK OF FRACTURE. BONE DENSITY IS UNDESIRABLY LOW AT ONE OR MORE SKELETAL SITES, CONSISTENT WITH POSTMENOPAUSAL OSTEOPOROSIS. This patient's lowest T-score meets the World Health Organization's (WHO) criteria for osteoporosis at one or more sites (T-score -2.5 or below). In untreated patients, the risk of osteoporotic fracture increases approximately two-fold for each 1.0 SD decrease in T-score. Low bone density is not the only risk factor for fracture; also consider factors such as patient's age, frailty or poor health, risk of falling, risk of injury, previous osteoporotic fracture, family history of osteoporosis, cigarette smoking, low body weight, etc. Not everyone with low bone mineral density has osteoporosis; osteomalacia and other metabolic bone disorders should also be considered. Patients who have osteoporosis should be evaluated for specific diseases and conditions (secondary causes) that may cause or contribute to bone loss. The [place] [employer] of Clinical Endocrinologists (AACE) and National Osteoporosis Foundation (NOF) recommend pharmacologic intervention for all postmenopausal women whose T-score is in this range. The patient should follow a healthful lifestyle (good nutrition with adequate calcium and vitamin D, and appropriate weight-bearing exercise). Follow-Up: Consider a repeat BMD and Vertebral Fracture Assessment (VFA) exam in 2 years or sooner if medically necessary, to reassess this patient's status. Reported by: TANYA on 06/28/2025 12:43:00 PM. Reviewed, dictated and finalized at location A.
--- NOTE | ~2025-06-28 | MM_ITS ---
EXAMINATION: MM screening carlos alberto BI w jeffrey HISTORY: Screening TECHNIQUE: Craniocaudal and mediolateral oblique 3-D tomosynthesis images were obtained and synthetic 2-D images were generated. CAD analysis was submitted and interpreted. COMPARISON: 01/26/2020 BREAST PARENCHYMAL COMPOSITION: Not dense: There are scattered areas of fibroglandular density. FINDINGS: There is no evidence of suspicious mass, calcification, or architectural distortion to sugg est malignancy in either breast. There has been no suspicious interval change. IMPRESSION: 1. No mammographic evidence of malignancy. 2. Recommend routine screening mammography in one year. BI-RADS Category 1: Negative Reviewed, dictated and finalized at location A.
--- OUTSIDE RECORDS SUMMARY | 2025-06-28 12:06 | XMS_ITS | Encounter Summary ---
Author Organization [employer] Address [address] [place] [address] Care Team Providers Care Doctor Of Optometry Name Role Phone Cristóbal Causey MD Primary Care Provider + Encounter Details Date Type Department Care Team (Latest Contact Info) Description 12/25/1999 Outpatient Historical [facility]PATIENT Tera Hernandez MD [address] [facility] 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
--- OUTSIDE RECORDS SUMMARY | 2025-06-28 12:06 | XMS_ITS | Clinical Summary ---
Author Organization [facility] Address [address] [place] [address] Care Team Providers Care Almond Grinder Name Role Phone Cristóbal Causey MD Primary Care Provider [phone] Allergies No known active allergies Medications No known medications Active Problems No known active problems Family History Medical History Relation Name Comments Heart disease Father Relation Name Status Comments Father Social History Tobacco Use Types Packs/Day Years Used Date Smoking Tobacco: Never Tobacco Cessation:Counseling Given: Not Answered Personal Safety Answer Date Recorded Getting School Help Needed Not on file 01/10 Comments Unknown Sex and Gender Information Value Date Recorded Sex Assigned at Not on file Legal Sex Female 8:21 AM CONVERSION MAN Gender Identity Not on file Sexual Orientation Not on file Obstetrics History Last Filed Vital Signs Vital Sign Reading Time Taken Comments Blood Pressure 150/70 07/26/2023 3:36 PM CDT Pulse 78 07/26/2023 3:36 PM CDT Temperature - - Respiratory Rate - - Oxygen Saturation 99% 07/22/2023 2:32 PM CDT Inhaled Oxygen Concentration - - Weight 55.4 kg (122 lb 3.2 oz) 07/22/2023 2:32 P M CDT Height 165.1 cm (5' 5) 07/22/2023 2:32 PM CDT Body Mass Index 20.34 07/22/2023 2:32 PM CDT Plan of Treatment Health Maintenance Due Date Last Done Comments Breast Cancer Screening-Mammogram 1957 Colon Cancer Screening-Colonoscopy 1957 Depression Screening 1957 Fall Risk Assessment 1957 Hepatitis C Screening 1957 Osteoporosis Screening-Bone Density Scan 1957 DTaP/Tdap/Td Vaccine (1 - Tdap) 1968 Hepatitis B Screening 1975 Pneumococcal vaccine 65+ (1 of 1 - PCV) 2007 Well Visit 65+ 2022 Covid-19 Vaccine (2023-2 5 season) 2024 06/21/2023, 08/19/2022, 02/27/2022, Additional history exists Influenza Vaccine (#1) 2025 , 08/23/2021, 07/27/2020, Additional history exists Zoster Vaccine Completed 09/28/2020, 07/27/2020 [place] [address] MEDICARE [facility] [place] [id number] [address] [facility] Care Teams Almond Grinder Relationship Specialty Start Date End Date Cristóbal Causey MD [address]INE [place], [place] [id number] PCP - General Internal Medicine 07/22/23
--- OUTSIDE RECORDS SUMMARY | 2025-06-28 12:06 | XMS_ITS | Encounter Summary ---
Author Organization [facility] Address [address] [place] [address] Care Team Providers Care Partition Assembler Name Role Phone Cristóbal Causey MD Primary Care Provider + Encounter Details Date Type Department Care Team (Late st Contact Info) Description 12/23/1999 Outpatient Historical [facility] HOSPICE HOME CARE COORDINATOR - Medical [facility] [id number] [place] [address] Tera Hernandez MD [id number] [place] [address] Social History Tobacco Use Types Packs/Day Years Used Date Smoking Tobacco: Never Assessed Comments Unknown Sex and Gender Information Value Date Recorded Sex Assigned at Not on file 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
--- OUTSIDE RECORDS SUMMARY | 2025-06-28 12:06 | XMS_ITS | Encounter Summary ---
Author Organization [facility] Address [address] [place] [address] Care Team Providers Care Quality Assurance Project Manager Name Role Phone Cristóbal Causey MD Primary Care Provider + Encounter Details Date Type Department Care Team (Late st Contact Info) Description 05/06/2001 Outpatient Historical [facility] URBAN DESIGNER - Medical [facility] [id number] [place] [address] Tera Hernandez MD [id number] [place] [address] Social History Tobacco Use Types Packs/Day Years Used Date Smoking Tobacco: Never Assessed Comments Unknown Sex and Gender Information Value Date Recorded Sex Assigned at Not on file Legal Sex Female 4:54 AM AWS ARCHITECT Gender Identity Not on file Sexual Orientation Not on file documented as of this encounter Plan of Treatment Not on file documented as of this encounter Visit Diagnoses Not on filedocumented in this encounter Care Teams Quality Assurance Project Manager Relationship Specialty Start Date End Date Cristóbal Causey MD PCP - General Internal Medicine 08/18/11 documented as of this encounter
--- OUTSIDE RECORDS SUMMARY | 2025-06-28 12:06 | XMS_ITS | Encounter Summary ---
Author Organization [facility] Address [address] [place] [address] Phone Care Team Providers Care Cook Vegetable Name Role Phone Cristóbal Causey MD Primary Care Provider [phone] Encounter Details Date Type Department Care Team (Latest Contact Info) Description 07/08/2023 Orders Only [facility] Scanning, Provider Social History Tobacco Use Types Packs/Day Years Used Date Smoking Tobacco: Never Assessed Comments Unknown Sex and Gender Information Value Date Recorded Sex Assigned at Not on file Legal Sex Female 8:21 AM WELDER FITTER HELPER Gender Identity Not on file Sexual Orientation Not on file documented as of this encounter Plan of Treatment Not on file documented as of this encounter Procedures Procedure Name Priority Date/Time Associated Diagnosis Comments SCAN - RADIOLOGY/IMAGING 07/07/2023 CARDIOLOGY DOCUMENT SCAN 07/07/2023 documented in this encounter Results * CARDIOLOGY DOCUMENT SCAN (07/07/2023) Anatomical Region Laterality Modality Other us Provider Scanning CV CARDIAC SERVICES PROCEDURES Final Result * SCAN - RADIOLOGY/IMAGING (07/07/2023) Anatomical Region Laterality Modality Other us Provider Scanning Edited Result - Final documented in this encounter Visit Diagnoses Not on filedocumented in this encounter Care Teams Cook Vegetable Relationship Specialty Start Date End Date Cristóbal Causey MD [address] [facility] [address] [place], [place] [id number] PCP - General Internal Medicine 07/22/23 documented as of this encounter
--- OUTSIDE RECORDS SUMMARY | 2025-06-28 12:06 | XMS_ITS | Clinical Summary ---
Author Organization [facility] Address [address] [place] [address] Phone Care Team Providers Care Public Works Laborer Name Role Phone Cristóbal Causey MD Primary Care Provider + Allergies No known active allergies Medications No known medications Active Problems No known active problems Resolved Problems Problem Noted Date Diagnosed Date Resolved Date Lump or mass in breast 08/05/201109/07 Family History Medical History Relation Name Comments Heart Disease Father Yoshi Prostate Cancer Father Yoshi Stroke Mother Christi Healthy Sister Breast Cancer Neg Hx Cancer Neg Hx Ovarian Cancer Neg Hx Relation Name Status Comments Father Yoshi Alive Mother Christi Alive Sister Alive Son 1 Hunter Alive Son 2 Abiodun Alive Social History Tobacco Use Types Packs/Day Years Used Date Smoking Tobacco: Never Smokeless Tobacco: Never Tobacco Cessation:Counseling Given: Not Answered Alcohol Use Standard Drinks/Week Comments Yes 6 (1 standard drink = 0.6 oz pur e alcohol) occasional Comments No Sex and Gender Information Value Date Recorded Sex Assigned at Not on file Legal Sex Female 4:54 AM PARENT TRAINER Gender Identity Not on file Sexual Orientation Not on file Occupation Industry Job Start Date Job End Date Not on file Not on file Not on file Not on file Last Filed Vital Signs Vital Sign Reading Time Taken Comments Blood Pressure 149/91 11/02/2022 2:04 PM PARENT TRAINER Pulse - - Temperature - - Respiratory Rate - - Oxygen Saturation - - Inhaled Oxygen Concentration - - Weight 56.7 kg (125 lb) 11/02/2022 2:04 PM PARENT TRAINER Height 165.1 cm (5' 5) 11/02/2022 2:04 PM PARENT TRAINER Body Mass Index 20.8 11/02/2022 2:04 PM PARENT TRAINER Plan of Treatment Health Maintenance Due Date Last Done Comments DTAP/TDAP/TD VACCINES (1 - Tdap) 1976 FIT-DNA Q 3 years 2002 Flex Sig/CT Colonography Q 5 years 2002 PNEUMOCOCCAL VACCINE 50+ YEA RS (1 of 1 - PCV) 2007 ZOSTER VACCINE (1 of 2) 2007 BREAST CANCER SCREENING 06/03/2019 06/03/20 18, 01/22/2016, 11/22/2014, Additional history exists FIT/FOBT Q 1 year 02/13/2022 02/13/2021 OSTEOPOROSIS SCREENING 2022 COLORECTAL SCREENING 05/15/2024 05/15/2014 Colorectal Cancer Screening 05/15/2024 INFLUENZA VACCINE (#1) 2025 RSV VACCINE (60+ or ) (1 - 1-dose 75+ series) 2032 Procedures Procedure Name Priority Date/Time Associated Diagnosis Comments MAMMO SCREEN BILAT W OR WO CAD Routine 06/03/2018 2:33 PM CDT Well woman exam with routine gynecological exam from Last 3 Months or Most Recently Relevant to Health Maintenance Results * MAMMO SCREEN BILAT W OR WO CAD (06/03/2018 2:33 PM CDT) Anatomical Region Laterality Modality Breast Bilateral Mammography Narrative 06/03/2018 4:19 PM CDT Bilateral digital screening mammogram with computer assisted diagnosis History: Annual screening exam. Findings: A bilateral screening mammogram was performed. Comparison is made to : 01/22/2016, 11/22/2014, and 08/18/2011 There are scattered fibroglandular densities. No new masses, suspicious calcifications, or areas of asymmetry or distortion are identified. CAD was utilized. Impression: Negative screening mammogram. Recommendation: Routine annual follow-up Overall Assessment: Birads Category 1: Negative us Rich Chacon MD MAMMO ORDERABLES Final Resul t from Last 3 Months or Most Recently Relevant to Health [place] [address] MEDICARE [facility] Care Teams Public Works Laborer Relationship Specialty Start Date End Date Cristóbal Causey MD PCP - General Internal Medicine 08/18/11
--- OUTSIDE RECORDS SUMMARY | 2025-06-28 12:06 | XMS_ITS | Encounter Summary ---
Author Organization [facility] Address [address] [place] [address] Phone Care Team Providers Care Game Author Name Role Phone Cristóbal Causey MD Primary Care Provider [phone] Encounter Details Date Type Department Care Team (Latest Contact Info) Description 04/25/2021 Orders Only [facility] Scanning, Provider Social History Tobacco Use Types Packs/Day Years Used Date Smoking Tobacco: Never Assessed Comments Unknown Sex and Gender Information Value Date Recorded Sex Assigned at Not on file Legal Sex Female 8:21 AM CQ DEVELOPER Gender Identity Not on file Sexual Orientation Not on file documented as of this encounter Plan of Treatment Not on file documented as of this encounter Procedures Procedure Name Priority Date/Time Associated Diagnosis Comments CARDIOLOGY DOCUMENT SCAN 04/25/2021 documented in this encounter Results * CARDIOLOGY DOCUMENT SCAN (04/25/2021) Anatomical Region Laterality Modality Other us Provider Scanning CV CARDIAC SERVICES PROCEDURES Final Result documented in this encounter Visit Diagnoses Not on filedocumented in this encounter Care Teams Game Author Relationship Specialty Start Date End Date Cristóbal Causey MD [address] [place] [address] PCP - General Internal Medicine 07/22/23 documented as of this encounter
--- OUTSIDE RECORDS SUMMARY | 2025-06-28 12:07 | XMS_ITS | Encounter Summary ---
Author Organization [facility] Address [address] [place] [address] Care Team Providers Care Concrete Pile Driver Operator Name Role Phone Cristóbal Causey MD Primary Care Provider [phone] Reason for Referral * Imaging (Routine) - Closed Specialty Diagnoses / Procedures Referred By John juarez Referred To Contact RADIOLOGY Diagnoses Abnormal finding of blood chemistry, unspecified Mixed hyperlipidemia Procedures CT HEART SCREEN CALCIUM SCORE Cristóbal Bridges MD [address] [place] [address] Phone: tel: fax: Referral ID Status Reason Start Date Expiration Date Visits Re quested Visits Authorized [id number] Closed CT 05/22/2025 05/22/2026 1 1 Reason for Visit * Imaging (Routine) - Closed Specialty Diagnoses / Procedures Referred By John juarez Referred To Contact RADIOLOGY Diagnoses Abnormal finding of blood chemistry, unspecified Mixed hyperlipidemia Procedures CT HEART SCREEN CALCIUM SCORE Cristóbal Bridges MD [address] [place] [address] Phone: tel: fax: Referral ID Status Reason Start Date Expiration Date Visits Re quested Visits Authorized [id number] Closed CT 05/22/2025 05/22/2026 1 1 Encounter Details Date Type Department Care Team (Latest Contact Info) Description 06/26/2025 9:15 AM CDT - 06/26/2025 11:59 PM CDT [facility] [address] [place] [address] Cristóbal Causey MD [address] [place] [address] Arrived Discharge Disposition: Home or Self Care (Routine Discharge) Social History Tobacco Use Types Packs/Day Years Used Date Smoking Tobacco: Never Assessed Comments Unknown Sex and Gender Information Value Date Recorded Sex Assigned at Female 06/05/2025 11:39 AM CDT Legal Sex Female 12:05 PM CDT Gender Identity Not on file Sexual Orientation Not on file documented as of this encounter Plan of Treatment Pending Results Name Type Priority Associated Diagnoses Date /Time CT HEART SCREEN CALCIUM SCORE PROMO CT Routine Abnormal finding of blood chemistry, unspecified Mixed hyperlipidemia 06/26/2025 9:31 AM CDT Scheduled Orders Name Type Priority Associated Diagnoses Orde r Schedule CT HEART SCREEN CALCIUM SCORE PROMO CT Routine Abnormal finding of blood chemistry, unspecified Mixed hyperlipidemia Once for 1 Occurrences starting 06/26/2025 until 06/26/2025 documented as of this encounter Visit Diagnoses Diagnosis Abnormal finding of blood chemistry, unspecified Mixed hyperlipidemia documented in this encounter Care Teams Concrete Pile Driver Operator Relationship Specialty Start Date End Date Cristóbal Causey MD [address] [place] [address] PCP - General INTERNAL MEDICINE 06/18/25 documented as of this encounter
--- OUTSIDE RECORDS SUMMARY | 2025-06-28 12:07 | XMS_ITS | Encounter Summary ---
Author Organization [facility] Address [address] [place] [address] Care Team Providers Care Program Rep Name Role Phone Cristóbal Causey MD Primary Care Provider + Encounter Details Date Type Department Care Team (Late st Contact Info) Description 05/09/2002 Outpatient Historical [facility] SURGERY CONSULTANT - Medical [facility] [address] [address], [place] [address] Tera Hernandez MD [id number] [place] [address] Social History Tobacco Use Types Packs/Day Years Used Date Smoking Tobacco: Never Assessed Comments Unknown Sex and Gender Information Value Date Recorded Sex Assigned at Not on file Legal Sex Female 4:54 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
--- OUTSIDE RECORDS SUMMARY | 2025-06-28 12:07 | XMS_ITS | Encounter Summary ---
Author Organization [facility] Address [address] [place] [address] Care Team Providers Care Enroller Name Role Phone Cristóbal Causey MD Primary Care Provider + Encounter Details Date Type Department Care Team (Late st Contact Info) Description 05/13/2004 Outpatient Historical [facility] DIRECTOR ELECTRICAL ENGINEERING - Medical [facility] [id number] [place] [address] Tera Hernandez MD [id number] [place] [address] Social History Tobacco Use Types Packs/Day Years Used Date Smoking Tobacco: Never Assessed Comments Unknown Sex and Gender Information Value Date Recorded Sex Assigned at Not on file 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
--- OUTSIDE RECORDS SUMMARY | 2025-06-28 12:07 | XMS_ITS | Clinical Summary ---
Author Organization [facility] Address [address] [place] [address] Care Team Providers Care Disbursing Officer Name Role Phone Cristóbal Causey MD Primary Care Provider [phone] Encounters Date Type Department Care Team Description 06/26/2025 9:15 AM CDT - 06/26/2025 11:59 PM CDT Hospital Encounter [facility] [address] [place] [address] Cristóbal Causey MD Arrived Discharge Disposition: Home or Self Care (Routine Discharge) 06/26/2025 Travel from Last 3 Months Social History Tobacco Use Types Packs/Day Years Used Date Smoking Tobacco: Never Assessed Comments Unknown Sex and Gender Information Value Date Recorded Sex Assigned at Female 06/05/2025 11:39 AM CDT Legal Sex Female 12:05 PM CDT Gender Identity Not on file Sexual Orientation Not on file Plan of Treatment Health Maintenance Due Date Last Done Comments Colorectal Cancer Screening Colonoscopy (10 Years) 1955 Hepatitis C 1975 DTaP, Tdap and Td Vaccines (1 - Tdap) 1976 Mammogram Screening 06/03/2020 06/03/2018, 01/22/2016, 11/22/2014 Dexa Scan (General) 2022 COVID-19 Vaccine ( season) 2025 09/08/2024, 05/03/2024, 06/21/2023, Additional history exists Zoster Vaccines Completed 09/28/2020, 07/27/2020 Pneumococcal Vaccine: 50+ Years Completed 07/28/2023 RSV Immunization or 60+ Years Completed 07/28/2023 Meningococcal B Vaccine Aged Out No l onger eligible based on patient's age to complete this topic Meningococcal Vaccine Aged Out No angel marycruz eligible based on patient's age to complete this topic RSV Immunizations Under 20 Months Aged Out No longer eligible based on patient's age to complete this topic Care Teams Disbursing Officer Relationship Specialty Start Date End Date Cristóbal Causey MD [address] [place] [address] PCP - General INTERNAL MEDICINE 06/18/25
--- OUTSIDE RECORDS SUMMARY | 2025-06-28 12:07 | XMS_ITS | Encounter Summary ---
Author Organization [facility] Address [address] [place] [address] Care Team Providers Care Specimen Preparation Assistant Name Role Phone Cristóbal Causey MD Primary Care Provider + Encounter Details Date Type Department Care Team (Late st Contact Info) Description 07/19/2007 Outpatient Historical [facility] CONVENTIONS ASSISTANT - Medical [facility] [id number] [place] [address] Tera Hernandez MD [id number] [place] [address] Social History Tobacco Use Types Packs/Day Years Used Date Smoking Tobacco: Never Assessed Comments Unknown Sex and Gender Information Value Date Recorded Sex Assigned at Not on file Legal Sex Female 4:54 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
--- OUTSIDE RECORDS SUMMARY | 2025-06-28 12:07 | XMS_ITS | Encounter Summary ---
Author Organization [facility] Address [address] [place] [address] Care Team Providers Care [place] Leverman Name Role Phone Cristóbal Causey MD Primary Care Provider + Encounter Details Date Type Department Care Team (Late st Contact Info) Description 07/07/2005 Outpatient Historical [facility] ENGRAVER COPPERPLATE - Medical [facility] [id number] [place] [address] Tera Hernandez MD [id number] [place] [address] Social History Tobacco Use Types Packs/Day Years Used Date Smoking Tobacco: Never Assessed Comments Unknown Sex and Gender Information Value Date Recorded Sex Assigned at Not on file Legal Sex Female 4:54 AM HOME CARE AIDE Gender Identity Not on file Sexual Orientation Not on file documented as of this encounter Plan of Treatment Not on file documented as of this encounter Visit Diagnoses Not on filedocumented in this encounter Care Teams [place] Leverman Relationship Specialty Start Date End Date Cristóbal Causey MD PCP - General Internal Medicine 08/18/11 documented as of this encounter
--- OUTSIDE RECORDS SUMMARY | 2025-06-28 12:07 | XMS_ITS | Encounter Summary ---
Author Organization [facility] Address [address] [place] [address] Care Team Providers Care Mobile Mechanic Name Role Phone Cristóbal Causey MD Primary Care Provider + Encounter Details Date Type Department Care Team (Late st Contact Info) Description 07/13/2006 Outpatient Historical [facility] GENERAL UTILITY MACHINE OPERATOR - Medical [facility] [id number] [place] [address] Tera Hernandez MD [id number] [place] [address] Social History Tobacco Use Types Packs/Day Years Used Date Smoking Tobacco: Never Assessed Comments Unknown Sex and Gender Information Value Date Recorded Sex Assigned at Not on file Legal Sex Female 4:54 AM CHOIR MEMBER Gender Identity Not on file Sexual Orientation Not on file documented as of this encounter Plan of Treatment Not on file documented as of this encounter Visit Diagnoses Not on filedocumented in this encounter Care Teams Mobile Mechanic Relationship Specialty Start Date End Date Cristóbal Causey MD PCP - General Internal Medicine 08/18/11 documented as of this encounter
--- OUTSIDE RECORDS SUMMARY | 2025-06-28 12:07 | XMS_ITS | Encounter Summary ---
Author Organization [facility] Address [address] [place] [address] Care Team Providers Care Director Of Patient Care Name Role Phone Cristóbal Causey MD Primary Care Provider + Encounter Details Date Type Department Care Team (Late st Contact Info) Description 05/11/2003 Outpatient Historical [facility] PACKING ATTENDANT - Medical [facility] [id number] [place] [address] Tera Hernandez MD [id number] [place] [address] Social History Tobacco Use Types Packs/Day Years Used Date Smoking Tobacco: Never Assessed Comments Unknown Sex and Gender Information Value Date Recorded Sex Assigned at Not on file Legal Sex Female 4:54 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
== END 2025-06-28 12:05 | disposition home or self-care (01) ==
LOC: CHSIMG 12:05
PROVIDERS: PCP Internal Medicine; Visit Provider Internal Medicine
DX: Z12.31 Encounter for screening mammogram for malignant neoplasm of breast (principal); Z78.0 Asymptomatic menopausal state; M85.89 Other specified disorders of bone density and structure, multiple sites; M81.0 Age-related osteoporosis without current pathological fracture
CPT/HCPCS: 77063; 77067; 77080